=== PATIENT | male | born 1935 | race Caucasian/White ===

== ENCOUNTER 2024-05-23 10:13 | Outpatient (AMB) | payer MEDICARE, MEDICAID, SELFPAY ==
--- NOTE | 2024-05-23 10:18 | A.OFFVIS_ITS ---
Vital Signs 05/23/24 10:20 Height 6 ft Weight 221 lb BMI 30.0 Pulse 62 Pulse Source Pulse Oximeter Pulse Oximetry (%) 98 Oxygen Delivery Method Room Air Intake Visit Reasons: ENP-Myasthenia Gravis-Unable to lvm Intake Note: Patient presents for myasthenia gravis. Allergies No Known Allergies Allergy (Verified 05/23/24 10:21) Medication List - Last Reconciled 05/23/24 by GENE Alves amlodipine 5 mg PO DAILY atorvastatin 40 mg PO BEDTIME azathioprine 50 mg PO DAILY chlorthalidone 25 mg PO DAILY docusate sodium (Colace) 100 mg PO DAILY ketorolac 0.5% 1 drp ophthalmic (eye) QID magnesium 200 mg PO DAILY melatonin 3 mg PO BEDTIME PRN pyridoxine (vitamin B6) 50 mg PO DAILY HPI Comments Details: Right-handed 88-yr-old male presents to [facility] care w/ neurology for management of Myasthenia Gravis. Pt is accompanied by his dtr. Pt was diagnosed with Myasthenia Gravis ~6-[address] Jurado. Per review of Dr Jurado's notes- in 2016, pt walked out of his house, became dizzy, weak, could not feel his tongue or speak. He fell and hit his head. No LOC. Had right facial droop, right arm clumsiness. He did need help to get around. Pt returned to baseline w/in 2-3 days, though Right upper eyelid ptosis persisted. 2016 work-up- CT head unremarkable, CT neck showed thyroid nodule, US thyroid 1cm nodule- appeared benign. Pt was started on ASA- for ? stroke. Workj-up w/ Dr Jurado's office showed EMG c/w MG. ACHRAB 5.70 (<0.02). Carotid duplex- unremarkable. CTA was reprtes as showing- possible left opercular MCA branch proximal occlussion. CTA chest showed cardiomegally ad right thyroid 1.8cm nodule. Otherwise, states his other initial symptoms were diplopia, bilateral ptosis, inability to chew, dysphagia, SOB, generalized weakness. At that time, he had lost a significant amount of weight as he could only take in small amounts of pureed foods. However overall, these symptoms are better controlled when he is is compliant w/ his current Tx plan. Though, he did have a MG flare in 2020, requiring a [facility] hosp admission- possibly triggered by dental work 3 months prior. At that time, it was realized pt was taking 2 different orders of Mestinon. He did receive a 5 day course of IVIG tx, which did improve his MG s/s though he still had fatigue/SOB on exertion. He was discharged on prednisone 20 mg TID, pyridostigmine ER 180 TID (confirmed with neurologist Dr. Canales), dysphagia level 1 and honey thick liquid diet. He was discharged w/ nursing who manages his medications- meds are in a locked box. After the 2020 hosp admission, pt was started on Azathioprine 50mg tid, weaned off of Prednisone, and continued on Mestinon ER 180mg tid. Pt states he is tolerating his current tx regimen well, and is working well for him. Pt has never had a prn Mestinon dosing- dtr states that she worries if he had prn doses, he would take too much again. Currently, pt states he is doing well. He does need assist w/ ADLs. Has a walker at home. Dtr states he does need increased asist at night, especially for getting up to use the BR. He is taking regular food and liquids. He does not usually have bothersome diplopia. He may notice increased MG s/s when he is late to take a dose or if the climate is hot/humid- such as worsening difficulty eating (needs to puree his food) and fatigue. He does make sure to keep his home AC on. 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 He will also be establishing care w/ a new LINGO CLEANER and ? PACE program- dtr is unsure of which program. Pt lives with his . [facility] Medical History (Updated 05/23/24 @ 21:17 by GENE Alves) Orthostatic hypotension Prediabetes Ptosis Sensorineural hearing loss Venous insufficiency of left leg Vitamin D deficiency Plantar fasciitis Osteoarthritis Nocturia Myasthenia gravis Mild depression Lumbago Ischemic cerebrovascular disease Insomnia HTN (hypertension) Hammer toe Dysphagia Diabetes Cataract Surgical History H/O arthroscopic knee surgery H/O hernia repair Family History Brother CAD (coronary artery disease) Review of Systems Const All systems reviewed & are unremarkable except as noted in HPI and below Physical Exam Vital Signs: Last Vital Signs Pulse 62 05/23/24 10:20 Pulse Ox 98 05/23/24 10:20 Oxygen Delivery Method Room Air 05/23/24 10:20 BMI result Body Mass Index 30.0 Const General: cooperative and no acute distress Orientation/consciousness: patient oriented x3 HEENT Head: Yes normocephalic Resp Effort & Inspection: normal respiratory effort and able to speak in complete sentences Neuro Other: Alert, oriented, some STM lapses. Mild left upper eyelid ptosis. EOM intact. Pt has difficulty maintaining prolonged upgaze. BUE MS 5/5 BLE MS 5-/5 Slow to stand, slow, steady gait. General: patient oriented x3 Cranial nerves: Yes Facial sensation intact/muscles of mastication intact, Yes Bilaterally intact EOM present, Yes Nystagmus not present, Yes Midline tongue present, Yes Symmetric palate elevation present, Yes Ability to bilaterally janae vate shoulders present and Yes Individual cranial nerve findings present VIII: abnormal ([id number]) Motor exam (neuro): Pronator motor function not present Deep tendon reflexes (DTR's): Right triceps reflex intensity grade: 2+, Left triceps reflex intensity grade: 2+, Rt Biceps (C5, C6): 2+, Left biceps reflex intensity grade: 2+, Right brachioradialis reflex intensity grade: 2+, Left brachioradialis reflex intensity grade: 2+, Right patellar reflex intensity grade: 1+ and Left patellar reflex intensity grade: 1+ Psych Appearance: grossly normal Speech and movement: Clear speech present Affect: normal affect Attitude: cooperative Assessment & Plan Assessment & Plan (1) Myasthenia gravis: Comment: AcHRAB positive, EMG results c/w MG. Code(s): G70.00 - Myasthenia gravis without (acute) exacerbation Category: Medical (2) Ptosis: Code(s): H02.409 - Unspecified ptosis of unspecified eyelid Category: Medical (3) Dysphagia: Code(s): R13.10 - Dysphagia, unspecified Category: Medical (4) Weakness: Code(s): R53.1 - Weakness Category: Medical Plan Continue Mestinon ER 180mg po tid. Continue Azathioprine 50mg po tid. Check CBC, CMP. Monitor MG s/s- weakness, dysphagia, ptosis/diplopia. Future considerations- increasing Mestinon, IVIG. Advised to notify us w/ any worsening MG s/s. f/u in 6 months or sooner prn. Orders: Orders Complete Blood Count Auto Diff Today G70.00 - Myasthenia gravis without (acute) exacerbation Comprehensive Met. Panel Today G70.00 - Myasthenia gravis without (acute) exacerbation Medications: New azathioprine 50 mg orally TID; 90 tabs 6RF 30 days pyridostigmine bromide ER (Mestinon Timespan) 180 mg orally TID; administer 6 hours apart 90 tabs 6RF 30 days Coding Level of Care Code New Pt Level 4 (66709) Diagnoses Myasthenia gravis G70.00 Ptosis H02.409 Dysphagia R13.10 Weakness R53.1
[2024-05-23 10:20] VITALS: PULSE 62; O2SAT 98
== END 2024-05-23 11:22 | disposition home or self-care (01) ==
PROVIDERS: PCP Psychiatry & Neurology Neurology; Visit Provider Nurse Practitioner Family
DX: G70.00 Myasthenia gravis without (acute) exacerbation (principal); H02.409 Unspecified ptosis of unspecified eyelid; R13.10 Dysphagia, unspecified; R53.1 Weakness
CPT/HCPCS: 99204

== ENCOUNTER → 2024-05-23 10:13 | Outpatient (BNVA) | payer MEDICAID, SELFPAY | PROVIDERS: PCP Psychiatry & Neurology Neurology; Visit Provider Nurse Practitioner Family ==

== ENCOUNTER 2024-05-23 11:23 | Outpatient (REF) | payer MEDICARE, MEDICAID, SELFPAY ==
[2024-05-23 18:00] LABS: MANUAL DIFF FLAG NO
[2024-05-23 18:03] LABS: Basophils Percent Auto 0.4 % (0-2); Eosinophils Absolute Auto 0.1 X10*3/uL (0.0-0.4); Eosinophils Percent Auto 1.3 % (0-4); Hematocrit 38.2 % (42.0-52.0); Hemoglobin 13.1 g/dl (14.0-18.0); Imm Gran Abs Auto 0.01 X10*3/uL (0.00-0.03); Imm Gran Pct Auto 0.2 % (0.0-0.4); Lymphocytes Absolute Auto 0.8 X10*3/uL (1.2-4.9); Lymphocytes Percent Auto 16.4 % (20-40); Mean Corpuscular HGB Conc 34.3 g/dl (31.0-36.0); Mean Corpuscular Hemoglobin 32.1 pg (27.0-33.0); Mean Corpuscular Volume 93.6 fL (80.0-98.0); Mean Platelet Volume 11.1 fL (9.4-12.4); Monocytes Absolute Auto 0.6 X10*3/uL (0.1-1.2); Monocytes Percent Auto 12.7 % (2-11); Neutrophils Absolute Auto 3.2 x10*3/uL (2.0-8.3); Platelet Count 149 X10*3/uL (160-400); Red Blood Count 4.08 X10*6/uL (4.60-5.80); Red Cell Distribution Width 15.5 % (11.0-16.0); White Blood Count 4.6 X10*3/uL (4.8-10.8)
[2024-05-23 18:19] LABS: Alanine Aminotransferase 17 U/L (0-40); Albumin Level 3.8 g/dL (3.5-5.0); Alkaline Phosphatase 75 U/L (39-117); Anion Gap 8 (12-20); Aspartate Amino Transferase 21 U/L (5-37); Bilirubin Total 0.6 mg/dL (0.0-1.0); Blood Urea Nitrogen 14 mg/dL (9-16); Calcium 8.6 mg/dL (8.4-10.2); Carbon Dioxide 26 mmol/L (22-29); Chloride 111 mmol/L (96-108); Estimated Glomerular Filt Rate > 60; Glucose Random 123 mg/dL (60-115); Potassium 4.4 mmol/L (3.3-5.1); Sodium 141 mmol/L (135-145); Total Protein 6.3 g/dL (6.5-8.0)
== END 2024-05-23 11:24 | disposition home or self-care (01) ==
LOC: HO.HKASLDS 11:23
PROVIDERS: Visit Provider Nurse Practitioner Family
DX: G70.00 Myasthenia gravis without (acute) exacerbation (principal); R13.10 Dysphagia, unspecified; R53.1 Weakness; H02.409 Unspecified ptosis of unspecified eyelid
CPT/HCPCS: 36415; 80053; 85025; 99202

== ENCOUNTER 2024-12-01 09:54 | Outpatient (AMB) | payer MEDICARE, MEDICAID, SELFPAY ==
--- NOTE | 2024-12-01 10:05 | MHC.OFFVIS ---
Vital Signs 12/01/24 10:07 Height 6 ft Weight 221 lb BMI 30.0 BP 140/80 H Blood Pressure Location Lt brachial Position Sitting Pulse 66 Pulse Source Pulse Oximeter Pulse Oximetry (%) 98 Oxygen Delivery Method Room Air Intake Visit Reasons: Follow up Myasthenia Gravis Intake Note: Patient presents follow up myasthenia Gravis. Labs in chart Electrical Linesworker Required: No Electrical Linesworker Services: Electrical Linesworker Offered & Declined Accompanied by: Grand Child Allergies No Known Allergies Allergy (Verified 12/01/24 10:09) Medication List - Last Reconciled 12/01/24 by GENE Alves amlodipine 5 mg PO DAILY atorvastatin 40 mg PO BEDTIME azathioprine 50 mg PO TID 90 days chlorthalidone 25 mg PO DAILY docusate sodium (Colace) 100 mg PO DAILY ketorolac 0.5% 1 drp ophthalmic (eye) QID magnesium 200 mg PO DAILY melatonin 3 mg PO BEDTIME PRN pyridostigmine bromide ER (Mestinon Timespan) 180 mg orally TID; administer 6 hours apart 30 days pyridoxine (vitamin B6) 50 mg PO DAILY HPI Comments Details: The patient is an 89-year-old male presenting with myasthenia gravis. Pt is accompanied by his Rene sloan. He takes Mestinon and azathioprine three times daily for management. Reports muscle weakness, particularly before noon, resolving after taking next dose of Mestinon and azathioprine. Experiences intermittent double vision in mornings. He endorses breathing difficulty upon arising in the morning, which is alleviated shortly after waking. He reports intermittent painless sensation fasciculations (these are not visible), which occur throughout his body. Stress from his 's illness exacerbates perceived weakness. He denies swallowing or daytime breathing difficulty. Leg cramps occur upon waking but improve with activity. Hydration is adequate. Review of Systems- Neurologic: Reports intermittent double vision; denies consistent dyspnea and dysphagia. - Musculoskeletal: Reports muscle weakness in arms and legs, random fasciculations, and leg cramps. Denies persistent muscle cramps. - Stress and Fatigue: Reports increased weakness and anxiety due to 's hospitalization. Right-handed 88-yr-old male presents to [facility] w/ neurology for management of Myasthenia Gravis. Pt is accompanied by his dtr. Pt was diagnosed with Myasthenia Gravis ~6-[address] Jurado. Per review of Dr Jurado's notes- in 2016, pt walked out of his house, became dizzy, weak, could not feel his tongue or speak. He fell and hit his head. No LOC. Had right facial droop, right arm clumsiness. He did need help to get around. Pt returned to baseline w/in 2-3 days, though Right upper eyelid ptosis persisted. 2016 work-up- CT head unremarkable, CT neck showed thyroid nodule, US thyroid 1cm nodule- appeared benign. Pt was started on ASA- for ? stroke. Work-up w/ Dr Jurado's office showed EMG c/w MG. ACHRAB 5.70 (<0.02). Carotid duplex- unremarkable. CTA was reprtes as showing- possible left opercular MCA branch proximal occlussion. CTA chest showed cardiomegally ad right thyroid 1.8cm nodule. Otherwise, states his other initial symptoms were diplopia, bilateral ptosis, inability to chew, dysphagia, SOB, generalized weakness. At that time, he had lost a significant amount of weight as he could only take in small amounts of pureed foods. However overall, these symptoms are better controlled when he is is compliant w/ his current Tx plan. Though, he did have a MG flare in 2020, requiring a [facility] hosp admission- possibly triggered by dental work 3 months prior. At that time, it was realized pt was taking 2 different orders of Mestinon. He did receive a 5 day course of IVIG tx, which did improve his MG s/s though he still had fatigue/SOB on exertion. He was discharged on prednisone 20 mg TID, pyridostigmine ER 180 TID (confirmed with neurologist Dr. Canales), dysphagia level 1 and honey thick liquid diet. He was discharged w/ nursing who manages his medications- meds are in a locked box. After the 2020 hosp admission, pt was started on Azathioprine 50mg tid, weaned off of Prednisone, and continued on Mestinon ER 180mg tid. Pt states he is tolerating his current tx regimen well, and is working well for him. Pt has never had a prn Mestinon dosing- dtr states that she worries if he had prn doses, he would take too much again. Currently, pt states he is doing well. He does need assist w/ ADLs. Has a walker at home. Dtr states he does need increased asist at night, especially for getting up to use the BR. He is taking regular food and liquids. He does not usually have bothersome diplopia. He may notice increased MG s/s when he is late to take a dose or if the climate is hot/humid- such as worsening difficulty eating (needs to puree his food) and fatigue. He does make sure to keep his home AC on. Pt has recently changed his PACE program as they are hoping to increase overnight [employer] SPECIAL AGENT/PATIENT RESOURCE SPECIALIST hours. He will also be establishing care w/ a new [employer] SPECIAL AGENT and ? PACE program- dtr is unsure of which program. Pt lives with his . [facility] Medical History (Updated 12/17/24 @ 08:34 by GENE Alves) Orthostatic hypotension Prediabetes Ptosis Sensorineural hearing loss Venous insufficiency of left leg Vitamin D deficiency Plantar fasciitis Osteoarthritis Nocturia Myasthenia gravis Mild depression Lumbago Ischemic cerebrovascular disease Insomnia HTN (hypertension) Hammer toe Dysphagia Diabetes Cataract Surgical History H/O arthroscopic knee surgery H/O hernia repair Family History Brother CAD (coronary artery disease) Physical Exam Vital Signs: Last Vital Signs Pulse 66 12/01/24 10:07 BP 140/80 H 12/01/24 10:07 Pulse Ox 98 12/01/24 10:07 Oxygen Delivery Method Room Air 12/01/24 10:07 BMI result Body Mass Index 30.0 Const General: cooperative and no acute distress HEENT Head: Yes normocephalic Resp Effort & Inspection: normal respiratory effort and able to speak in complete sentences Neuro Other: - Alert, oriented, some STM lapses. - [place] - Mild left upper eyelid ptosis. - BUE MS 5/5 - BLE MS 5-/5 - During strength testing; minor shortness of breath noted with resistance exercises. - Slow to stand, slow, steady gait. Deep tendon reflexes (DTR's): Right triceps reflex intensity grade: 2+, Left triceps reflex intensity grade: 2+, Rt Biceps (C5, C6): 2+, Left biceps reflex intensity grade: 2+, Right brachioradialis reflex intensity grade: 2+, Left brachioradialis reflex intensity grade: 2+, Right patellar reflex intensity grade: 1+ and Left patellar reflex intensity grade: 1+ Psych Appearance: grossly normal Speech and movement: Clear speech present Affect: normal affect Attitude: cooperative Assessment & Plan Assessment & Plan (1) Myasthenia gravis: Comment: AcHRAB positive, EMG results c/w MG. Code(s): G70.00 - Myasthenia gravis without (acute) exacerbation Category: Medical (2) Weakness: Code(s): R53.1 - Weakness Category: Medical (3) Ptosis: Code(s): H02.409 - Unspecified ptosis of unspecified eyelid Category: Medical (4) Diplopia: Code(s): H53.2 - Diplopia Category: Medical Plan Discussion Notes I emphasized maintaining the current regimen of Mestinon (pyridostigmine) and azathioprine while monitoring for worsening symptoms. I addressed concerns over double vision, suggesting special eyewear if it persists. Considerations included the patient's stress levels impacting myasthenia symptoms. We will collaborate with [facility] to check CBC, CMP, vitamin B6 levels for medication safety monitoring and vitamin B6, due to possible side effects. I encouraged communication if symptoms like double vision, dysphagia, weakness, or breathing difficulties become more consistent, outlining potential treatment modifications as necessary. Patient Instructions - Continue taking Mestinon ER 180 mg 3 times a day and azathioprine as prescribed. - Continue taking Azathioprine 50 mg 3 times a day as prescribed. - Monitor for any changes in vision, swallowing, or breathing and inform me if these symptoms become more persistent. - Ensure adequate hydration and continue walking off morning cramps. - Look out for any new signs of worsening symptoms and call if needed. - Labs will be conducted through [facility] to monitor medication effects and vitamin B6 level - Consider using prism glasses if double vision persists. - Address stressors with support systems to mitigate effects on symptoms. Patient was informed and verbally consented to the use of an ambient scribe for clinic note documentation during this visit. Orders: Orders Complete Blood Count Auto Diff 12/01/24 G70.00 - Myasthenia gravis without (acute) exacerbation, R53.1 - Weakness Vitamin B6 12/01/24 G70.00 - Myasthenia gravis without (acute) exacerbation, R53.1 - Weakness Comprehensive Met. Panel 12/01/24 G70.00 - Myasthenia gravis without (acute) exacerbation, R53.1 - Weakness Medications: Changed From pyridostigmine bromide ER 180 mg orally TID; administer 6 hours apart 30 days 90 tabs 6RF To pyridostigmine bromide ER (Mestinon Timespan) 180 mg PO TID 270 tabs 1RF 90 days Refilled azathioprine 50 mg PO TID 270 tabs 1RF 90 days Coding Level of Care Code Est Pt Level 4 (58564) Diagnoses Myasthenia gravis G70.00 Weakness R53.1 Ptosis H02.409 Diplopia H53.2
[2024-12-01 10:07] VITALS: BP 140/80; PULSE 66; O2SAT 98
== END 2024-12-01 10:37 | disposition home or self-care (01) ==
PROVIDERS: PCP Psychiatry & Neurology Neurology; Visit Provider Nurse Practitioner Family
DX: G70.00 Myasthenia gravis without (acute) exacerbation (principal); R53.1 Weakness; H02.409 Unspecified ptosis of unspecified eyelid; H53.2 Diplopia
CPT/HCPCS: 99214

== ENCOUNTER → 2024-12-01 09:54 | Outpatient (BNVA) | payer MEDICARE, MEDICAID, SELFPAY | PROVIDERS: PCP Psychiatry & Neurology Neurology; Visit Provider Nurse Practitioner Family | DX: G70.00 Myasthenia gravis without (acute) exacerbation (principal); R53.1 Weakness; H02.409 Unspecified ptosis of unspecified eyelid; H53.2 Diplopia; Z79.899 Other long term (current) drug therapy | CPT/HCPCS: 99212 ==

== ENCOUNTER 2025-06-05 11:03 | Outpatient (AMB) | payer MEDICARE, MEDICAID, SELFPAY ==
[2025-06-05 11:33] VITALS: BP 140/60; PULSE 65; O2SAT 98; BMI 29.7
--- NOTE | 2025-06-05 11:33 | MHC.OFFVIS ---
Vital Signs 06/05/25 11:33 Height 6 ft Weight 219 lb BMI 29.7 BP 140/60 H Blood Pressure Location Lt brachial Position Sitting Pulse 65 Pulse Source Pulse Oximeter Pulse Oximetry (%) 98 Oxygen Delivery Method Room Air Intake Visit Reasons: 6 mo follow up Intake Note: Patient presents follow up myasthenia Gravis. Labs in chart Palletiser Operator Required: No Palletiser Operator Services: Palletiser Operator Offered & Declined Accompanied by: Self / Same As Patient Allergies No Known Allergies Allergy (Verified 06/05/25 11:40) HPI Comments Details: The patient is an 89-year-old male presenting with myasthenia gravis. Pt is accompanied by his dougsonRene. Patient denies any significant medical history changes. Patient reports he is doing well on his Mestinon and azathioprine, which he takes 3 times per day. He states these wear off shortly before he takes his next dose, at which time he will feel some increased fatigue and weakness, but these kick back in within 15 minutes. He notes that he started the mg treatment due to difficulty with swallowing, and he has not had any recent swallowing difficulties. He may occasionally have some diplopia, but it is intermittent and not bothersome. 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 Family is supportive of this. He states he had labs drawn at [facility] about a month ago. 12/01/2024, previous HPI: He takes Mestinon and azathioprine three times daily for management. Reports muscle weakness, particularly before noon, resolving after taking next dose of Mestinon and azathioprine. Experiences intermittent double vision in mornings. He endorses breathing difficulty upon arising in the morning, which is alleviated shortly after waking. He reports intermittent painless sensation fasciculations (these are not visible), which occur throughout his body. Stress from his 's illness exacerbates perceived weakness. He denies swallowing or daytime breathing difficulty. Leg cramps occur upon waking but improve with activity. Hydration is adequate. Review of Systems- Neurologic: Reports intermittent double vision; denies consistent dyspnea and dysphagia. - Musculoskeletal: Reports muscle weakness in arms and legs, random fasciculations, and leg cramps. Denies persistent muscle cramps. - Stress and Fatigue: Reports increased weakness and anxiety due to 's hospitalization. 05/23/2024, initial HPI: Right-handed 88-yr-old male presents to [facility] w/ neurology for management of Myasthenia Gravis. Pt is accompanied by his dtr. Pt was diagnosed with Myasthenia Gravis ~6-[address] Jurado. Per review of Dr Jurado's notes- in 2016, pt walked out of his house, became dizzy, weak, could not feel his tongue or speak. He fell and hit his head. No LOC. Had right facial droop, right arm clumsiness. He did need help to get around. Pt returned to baseline w/in 2-3 days, though Right upper eyelid ptosis persisted. 2016 work-up- CT head unremarkable, CT neck showed thyroid nodule, US thyroid 1cm nodule- appeared benign. Pt was started on ASA- for ? stroke. Work-up w/ Dr Jurado's office showed EMG c/w MG. ACHRAB 5.70 (<0.02). Carotid duplex- unremarkable. CTA was reprtes as showing- possible left opercular MCA branch proximal occlussion. CTA chest showed cardiomegally ad right thyroid 1.8cm nodule. Otherwise, states his other initial symptoms were diplopia, bilateral ptosis, inability to chew, dysphagia, SOB, generalized weakness. At that time, he had lost a significant amount of weight as he could only take in small amounts of pureed foods. However overall, these symptoms are better controlled when he is is compliant w/ his current Tx plan. Though, he did have a MG flare in 2020, requiring a [facility] hosp admission- possibly triggered by dental work 3 months prior. At that time, it was realized pt was taking 2 different orders of Mestinon. He did receive a 5 day course of IVIG tx, which did improve his MG s/s though he still had fatigue/SOB on exertion. He was discharged on prednisone 20 mg TID, pyridostigmine ER 180 TID (confirmed with neurologist Dr. Canales), dysphagia level 1 and honey thick liquid diet. He was discharged w/ nursing who manages his medications- meds are in a locked box. After the 2020 hosp admission, pt was started on Azathioprine 50mg tid, weaned off of Prednisone, and continued on Mestinon ER 180mg tid. Pt states he is tolerating his current tx regimen well, and is working well for him. Pt has never had a prn Mestinon dosing- dtr states that she worries if he had prn doses, he would take too much again. Currently, pt states he is doing well. He does need assist w/ ADLs. Has a walker at home. Dtr states he does need increased asist at night, especially for getting up to use the BR. He is taking regular food and liquids. He does not usually have bothersome diplopia. He may notice increased MG s/s when he is late to take a dose or if the climate is hot/humid- such as worsening difficulty eating (needs to puree his food) and fatigue. He does make sure to keep his home AC on. Pt has recently changed his [facility] program as they are hoping to increase overnight [employer] hours. He will also be establishing care w/ a new [employer] and ? [facility] program- dtr is unsure of which program. Pt lives with his . [facility] Medical History (Updated 06/05/25 @ 12:36 by GENE Alves) Orthostatic hypotension Prediabetes Ptosis Sensorineural hearing loss Venous insufficiency of left leg Vitamin D deficiency Plantar fasciitis Osteoarthritis Nocturia Myasthenia gravis Mild depression Lumbago Ischemic cerebrovascular disease Insomnia HTN (hypertension) Hammer toe Dysphagia Diabetes Cataract Surgical History H/O arthroscopic knee surgery H/O hernia repair Family History Brother CAD (coronary artery disease) Physical Exam Vital Signs: Last Vital Signs Pulse 65 06/05/25 11:33 BP 140/60 H 06/05/25 11:33 Pulse Ox 98 06/05/25 11:33 Oxygen Delivery Method Room Air 06/05/25 11:33 BMI result Body Mass Index 29.7 Const General: cooperative and no acute distress HEENT Head: Yes normocephalic Resp Effort & Inspection: normal respiratory effort and able to speak in complete sentences Neuro Other: - Alert, oriented, some STM lapses. - LITTLE SHELL TRIBE - Mild left upper eyelid ptosis. - BUE MS 5/5 - BLE MS 5-/5 - During strength testing; minor shortness of breath noted with resistance exercises. - Slow to stand, slow, steady gait. Psych Appearance: grossly normal Speech and movement: Clear speech present Affect: normal affect Attitude: cooperative Assessment & Plan Assessment & Plan (1) Myasthenia gravis: Comment: AcHRAB positive, EMG results c/w MG. Code(s): G70.00 - Myasthenia gravis without (acute) exacerbation Category: Medical (2) Weakness: Code(s): R53.1 - Weakness Category: Medical (3) Ptosis: Code(s): H02.409 - Unspecified ptosis of unspecified eyelid Category: Medical Qualifiers: Laterality: left Qualified Code(s): H02.402 - Unspecified ptosis of left eyelid (4) Diplopia: Code(s): H53.2 - Diplopia Category: Medical Plan - Continue taking Mestinon ER 180 mg 3 times a day - Continue taking Azathioprine 50 mg 3 times a day as prescribed. - Monitor for any changes in vision, swallowing, or breathing and inform me if these symptoms become more persistent. - Ensure adequate hydration - We will request recent lab results from [facility] to monitor medication effects and vitamin B6 level - Consider using prism glasses if double vision worsens. Will follow-up upon review of above and patient to follow-up in clinic in 6 months or sooner prn. Coding Level of Care Code Est Pt Level 4 (15209) Diagnoses Myasthenia gravis G70.00 Weakness R53.1 Ptosis of left eyelid H02.402 Laterality: left Diplopia H53.2
== END 2025-06-05 12:19 | disposition home or self-care (01) ==
LOC: HO.HSMS 11:06
PROVIDERS: PCP Psychiatry & Neurology Neurology; Visit Provider Nurse Practitioner Family
DX: G70.00 Myasthenia gravis without (acute) exacerbation (principal); R53.1 Weakness; H02.402 Unspecified ptosis of left eyelid; H53.2 Diplopia
CPT/HCPCS: 99214

== ENCOUNTER → 2025-06-05 11:03 | Outpatient (BNVA) | payer MEDICARE, MEDICAID, SELFPAY | PROVIDERS: PCP Psychiatry & Neurology Neurology; Visit Provider Nurse Practitioner Family | DX: G70.00 Myasthenia gravis without (acute) exacerbation (principal); R53.1 Weakness; H02.402 Unspecified ptosis of left eyelid; H53.2 Diplopia | CPT/HCPCS: 99212 ==